=== PATIENT | female | born 1930 | race African-American/Black ===

== ENCOUNTER 2020-05-15 14:37 | Emergency (ER) | payer MEDICARE, OTHER, MEDICAID ==
[~2020-05-15] VITALS: Ht 162.6 cm; Wt 57.0 kg
[2020-05-15 15:43] LABS: EOSINOPHILS % 0.6 % (0.0-5.0); HEMATOCRIT. 32.4 % (36.0-48.0); HEMOGLOBIN. 10.6 g/dL (12.0-16.0); LYMPHOCYTES % 17.3 % (20.0-50.0); MEAN CORPUSCULAR HEMOGLOBIN 27.8 pg (28.0-32.0); MEAN CORPUSCULAR VOLUME 84.7 fL (81.0-99.0); MEAN PLATELET VOLUME 8.8 fl (7.4-10.4); MONOCYTES % 6.1 % (2.0-8.0); PLATELET 250 x1000/uL (130-400); RED BLOOD CELL COUNT 3.82 mill/uL (4.2-5.4); RED CELL DISTRIBUTION WIDTH 16.7 % (11.6-14.6)
[2020-05-15 15:49] LABS: CHLORIDE 104 mEq/L (98-107)
[2020-05-15] MEDS ORDERED: GUAIFENESIN 200MG TABLET PO PRN (17:00)
[2020-05-15 18:46] LABS: CLARITY URINE TURBID (CLEAR); COLOR URINE YELLOW (YELLOW); KETONES URINE NEGATIVE (NEGATIVE); PH URINE 8.5 (4.5-8.0); PROTEIN URINE 1+ (NEGATIVE); SPECIFIC GRAVITY URINE 1.013 (1.005-1.030)
[2020-05-15 18:47] LABS: LEUKOCYTE ESTERASE URINE 3+ (NEGATIVE); NITRITE URINE NEGATIVE (NEGATIVE); OCCULT BLOOD URINE 3+ (NEGATIVE); UROBILINOGEN URINE 0.2 E.U./dL (0.2-1.0)
[2020-05-15] MEDS ORDERED: CEFTRIAXONE 1 G PREMIX 50 ML IV ONE (23:45)
[2020-05-16 05:40] VITALS: BP 146/63
== END 2020-05-16 08:37 | disposition home or self-care (01) ==
LOC: ER 14:37
DX: B34.9 Viral infection, unspecified (principal); Z20.828 Contact with and (suspected) exposure to other viral communicable diseases; D64.9 Anemia, unspecified; R05 Cough; R06.02 Shortness of breath; J02.9 Acute pharyngitis, unspecified; R31.29 Other microscopic hematuria; F03.90 Unspecified dementia, unspecified severity, without behavioral disturbance, psychotic disturbance, mood disturbance, and anxiety
CPT/HCPCS: 36415; 71045; 80053; 81003; 83880; 84484; 85025; 87040; 87077; 87086; 87186; 93005; 96365; 99285; C9803; J0696; U0003